=== PATIENT | female | born 1980 | race Caucasian/White ===

== ENCOUNTER 2025-04-12 13:55 | Outpatient (CLI) | payer MEDICAID ==
--- NOTE | 2025-04-16 13:34 | PROCEDURE NOTE - Respiratory ---
Procedure Note-Respiratory Providers to [facility] Copies To 1: FRANCO LORENZANA MD [facility] Procedure Name: This is a spirometry study dated April 12, 2025. There were also measurements of the maximum inspiratory pressure and the maximum expiratory pressure. Spirometry measurements: There is mild reduction in both the forced vital capacity and the FEV1. The FEV1 ratio is normal. Some of the flow rates are somewhat reduced. Bronchodilator was not administered as part of the study. Conclusion: Spirometry shows mild abnormality. There is evidence for mild obstructive ventilatory defect. There is also suggestion of mild restrictive ventilatory defect. We have no previous studies for comparison. Both the maximum expiratory pressure and maximum inspiratory pressure measurements show reduction. This indicates weakness of the respiratory musculature. These findings are consistent with the patient's diagnosis of myasthenia gravis. Close Neurology follow-up is recommended. DARCIE RIVAS MD Apr 16, 2025 13:34
== END 2025-04-12 23:59 | disposition home or self-care (01) ==
LOC: RT 13:55
PROVIDERS: ATTEND Psychiatry & Neurology Neuromuscular Medicine
DX: G70.00 Myasthenia gravis without (acute) exacerbation (principal); R06.09 Other forms of dyspnea
CPT/HCPCS: 94010; 94760